=== PATIENT | female | born 2005 ===

== ENCOUNTER 2024-02-12 17:49 | Emergency (ER) | payer SELFPAY ==
[2024-02-12 18:14] VITALS: BP 151/84; PULSE 65; RESP 16; TEMP 36.3; O2SAT 99
--- NOTE | 2024-02-12 19:11 | PC.NURSE ---
190-DUE TO EXTENDED WAIT, PATIENT ELECTS TO LEAVE. THIS RN ENCOURAGED PATIENT TO REMAIN FOR FURTHER EVALUATION, BUT PATIENT DECLINES.
== END 2024-02-12 19:25 | disposition left against medical advice (07) ==
LOC: ANHED 19:24
PROVIDERS: PCP Family Medicine
DX: K08.89 Other specified disorders of teeth and supporting structures (principal)
CPT/HCPCS: 99199